=== PATIENT | female | born 1985 ===

== ENCOUNTER 2017-11-19 08:23 | Inpatient (IN) | payer OTHER ==
[2017-11-19 08:44] VITALS: BMI 40.5
[2017-11-19] MEDS ORDERED: Lactated Ringer's 1,000 ML IV SCH (08:45)
--- NOTE | 2017-11-19 08:56 | OBHP ---
Datetime: 11/19/2017 08:48 IP Adm Impression: Term, intrauterine IP Admit Plan: Admit to unit; Initiate labor induction protocol Admit Comment, IP Provider: 32 y/o @ 39.2 wks GA c/o mucous type watery dicharge, no pain, dnei s ctx, +FM, denies vb OB: P0 REHAB DIRECTOR OCCUPATIONAL THERAPIST: Denies hx of abnormal pap, fibroids, ovarn cyst PMH: Hypothryoid PSH: dneies FH:X non contriubtory MEDS: Syntrhoid 112mcg, vitamin NKDA SHX: negative etoh/tobacc/durgs A/P @ 39.2 wks GA IOL for oligohdyramnios admit to L+D npo, ivf admission labs cytotec pain maamget prn Pelvic Type - PN: Adequate Extremities - PN: Normal Abdomen - PN: Normal Back - PN: Normal Breast - PN: Normal Lungs - PN: Normal Heart - PN: Normal Thyroid - PN: Normal Neurologic - PN: Normal HEENT - PN: Normal General - PN: Normal Presentation-Admit: Vertex FHR - Baseline A Provider: 145 Membranes, Provider: Intact Contraction Comments Provider: irregular Comments, ACOG Physical Exam: ultrasound DANICA 4.7cm, vtx Gestation - Est Wks by US: 39.2 IP Hx Assessment: The History has been Reviewed and is Current EGA AdmitDate IP: 39.2 Vital Signs Provider: Reviewed IP Chief Complaint: Suspected ruptured membranes NICHD Variability Prov Fetus A: Moderate 6-25bpm NICHD Decel Fetus A IP Provider: None Dilatation, Provider: 2 Effacement, Provider: 50 Station, Provider: -3 Genitourinary Exam: Normal DTRs - PN: Normal
--- NOTE | 2017-11-19 09:02 | OBADHP ---
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 hx of abnormal pap, fibroids, ovarn cyst PMH: Hypothryoid PSH: dneies FH:X non contriubtory MEDS: Syntrhoid 112mcg, vitamin NKDA SHX: negative etoh/tobacc/durgs A/P @ 39.2 wks GA IOL for oligohdyramnios admit to L+D npo, ivf admission labs cytotec pain maamget prn Pelvic Type - PN: Adequate Extremities - PN: Normal Abdomen - PN: Normal Back - PN: Normal Breast - PN: Normal Lungs - PN: Normal Heart - PN: Normal Thyroid - PN: Normal Neurologic - PN: Normal HEENT - PN: Normal General - PN: Normal Presentation-Admit: Vertex FHR - Baseline A Provider: 145 Membranes, Provider: Intact Contraction Comments Provider: irregular Comments, ACOG Physical Exam: ultrasound DANICA 4.7cm, vtx Gestation - Est Wks by US: 39.2 IP Hx Assessment: The History has been Reviewed and is Current Vital Signs Provider: Reviewed IP Chief Complaint: Suspected ruptured membranes NICHD Variability Prov Fetus A: Moderate 6-25bpm NICHD Decel Fetus A IP Provider: None Dilatation, Provider: 2 Effacement, Provider: 50 Station, Provider: -3 Genitourinary Exam: Normal DTRs - PN: Normal EGA AdmitDate IP: 39.2 IP Adm Impression: Term, intrauterine IP Admit Plan: Admit to unit; Initiate labor induction protocol
[2017-11-19 09:38] LABS: BASO % 0.2 % (0.0-2.0); EOS # 0.1 K/uL (0.0-0.7); EOS % 1.7 % (0.0-4.0); HEMOGLOBIN 11.4 g/dL (11.0-16.0); LYMPH # 1.8 K/uL (1.0-4.3); LYMPH % 20.6 % (20.0-40.0); MEAN CELL VOLUME 76.2 fL (81.0-99.0); MEAN CORPUSCULAR HGB CONC 32.8 g/dL (33.0-37.0); MEAN PLATELET VOLUME 10.2 fL (7.2-11.7); MONO # 0.7 K/uL (0.0-0.8); MONO % 7.8 % (0.0-10.0); NEUT % 69.7 % (50.0-75.0); NRBC % 0.1 % (0.0-2.0); RBC 4.55 Mil/uL (3.80-5.20); RED CELL DISTRIBUTION WIDTH 19.4 % (11.5-14.5); WHITE BLOOD COUNT 8.6 K/uL (4.8-10.8)
[2017-11-19 09:39] LABS: SQUAMOUS EPITHIAL 12 /hpf (0-5); URINE BACTERIA RARE (<OCC); URINE BILIRUBIN NEGATIVE (NEGATIVE); URINE BLOOD NEGATIVE (NEGATIVE); URINE CLARITY Hazy (Clear); URINE COLOR Yellow (YELLOW); URINE GLUCOSE (UA) 2+ mg/dL (Normal); URINE LEUKOCYTE ESTERASE 1+ Leu/uL (Negative); URINE PROTEIN 1+ mg/dL (NEGATIVE); URINE UROBILINOGEN NORMAL mg/dL (0.2-1.0)
[2017-11-19 09:57] LABS: ALBUMIN 3.2 g/dL (3.5-5.0); ALT/SGPT 23 U/L (9-52); AST/SGOT 23 U/L (14-36); BLOOD UREA NITROGEN 17 mg/dL (7-17); CALCIUM 8.9 mg/dl (8.6-10.4); GFR AFRICAN-AMERICAN > 60; GFR NON-AFRICAN AMERICAN > 60
[2017-11-19] MEDS ORDERED: Oxytocin 30 UNIT 30 UNITS/500 ML BAG IV SCH (13:00)
--- NOTE | 2017-11-19 13:02 | OBPN ---
Datetime: 11/19/2017 12:57 IP Progress Impression: Normal progression of labor IP Progress Plan: Continue present management Membranes, Provider: Intact Contraction Comments Provider: q 5 min FHR - Baseline A Provider: 125 Gestation - Est Wks by US: 39.2 Presentation-Admit: Vertex IP Progress Note Comment: pt seen and examined reports some cramping [place] snot want pian lisaciiaoany, d enie svb, +FM VSS VE 2-3 EFM: Cat I TOOC: q 5 mn irreula a/p @ 39.2 wks IOL for oligohydamnis -s/p cytotoic -pitoicn as per protoocl -anstheis prn Vital Signs Provider: Reviewed; Within Normal Limits FHR Category Provider Fetus A: Category I NICHD Variability Prov Fetus A: Moderate 6-25bpm Dilatation, Provider: 2-3 Effacement, Provider: 50 Station, Provider: -3 NICHD Decel Fetus A IP Provider: None
--- NOTE | 2017-11-19 16:54 | OBPN ---
Datetime: 11/19/2017 16:50 IP Procedures: Artificial ROM IP Progress Plan: Continue present management Membranes, Provider: Ruptured Amniotic Fluid Color, Provider: Clear FHR - Baseline A Provider: 125 Gestation - Est Wks by US: 39.2 Presentation-Admit: Vertex IP Progress Note Comment: pt seen and examined and reports pain requestng medicaion. pt checked for prgressin of labor VSS EFM: Cat I TOCO: q 2-5 min VE: 3/50/-3 AROM, clear, scant pitocin 10mu/min A/P @ 39.2 wks GA IOL for oligohydamnios -piotcn sa per protocol -cont toco adn efm -pain medication IV Nubain, benadryl Vital Signs Provider: Reviewed; Within Normal Limits FHR Category Provider Fetus A: Category I NICHD Variability Prov Fetus A: Moderate 6-25bpm Dilatation, Provider: 3 Effacement, Provider: 50 Station, Provider: -3
[2017-11-19] MEDS ORDERED: Nalbuphine 20 mg/ml Inj (1 ml) IVP PRN (17:00)
[2017-11-19] MEDS ORDERED: Nalbuphine 20 mg/ml Inj (1 ml) ONE (17:01)
[2017-11-19] MEDS ORDERED: DiphenhydrAMINE 50 mg/ml Inj ONE (17:02)
[2017-11-19] MEDS ORDERED: DiphenhydrAMINE 50 mg/ml Inj IVP ONE (17:15)
[2017-11-19] MEDS ORDERED: Bupivacaine HCl/FentaNYL Cit 100 ML EPI ONE (17:53)
[2017-11-19] MEDS ORDERED: Sodium Citrate/Citric Acid 15 ml Sol PO STA (20:29)
--- NOTE | 2017-11-19 20:34 | OBPN ---
Datetime: 11/19/2017 20:29 IP Progress Impression: Arrest of dilatation/descent IP Progress Plan: Deliver- Section Membranes, Provider: Ruptured Contraction Comments Provider: q 2 FHR - Baseline A Provider: 125 Gestation - Est Wks by US: 39.2 Presentation-Admit: Vertex IP Progress Note Comment: pt seen and examined for progression of labor pt advsied on continuation with iol vs cxs VSS VE 2-3 unchange EFM: Cat I TOCO: q 2 min a/p @ 39+ wks failure ot proress r/b/a/i pltcs dw paietn antios or/anestheis aware abodmian prep linares to gravity Vital Signs Provider: Reviewed; Within Normal Limits FHR Category Provider Fetus A: Category I NICHD Variability Prov Fetus A: Moderate 6-25bpm Dilatation, Provider: 2-3 Effacement, Provider: 50 Station, Provider: -3 NICHD Decel Fetus A IP Provider: None
[2017-11-19] MEDS ORDERED: Oxytocin 20 units in LR 2,000 ML IV ONE (20:42)
[2017-11-19] MEDS ORDERED: Sodium Citrate/Citric Acid 15 ml Sol ONE (20:42)
[2017-11-19] MEDS ORDERED: cefOXitin IV 2 gm in Saline 2 GM/50 ML BAG IVPB ONE (20:42)
[2017-11-19] MEDS ORDERED: Lidocaine 2% MPF (5 ml) Inj ONE (20:43)
[2017-11-19] MEDS: cefOXitin 2 GM in Sodium Chloride 0.9% 100 ML IV SCH (21:20)
[2017-11-19] MEDS ORDERED: Midazolam 2 MG/2 ML VIAL ONE (21:58)
[2017-11-19] MEDS ORDERED: Oxycodone/Acetaminophen 5/325 mg Tab PO PRN (22:27)
--- NOTE | 2017-11-19 22:29 | OBDS ---
DELIVERY PERSONNEL Delivery Doctor: Indiana Schwarz MD Anesthesiologist: DR. 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 Babies in Womb: 1 Attempted: No Labor Anesthesia: Epidural LABOR INFORMATION Reason for Induction: Oligohydramnios Onset of Labor: 11/19/2017 13:00 Cervical Ripening Agents: Cytotec @ (Annotations: 25 mcg po ) Oxytocin: Induction Group B Beta Strep: Negative Steroids Given: None Reason Steroids Not Administered: Not Applicable MEMBRANES Membranes Rupture Method: Artificial Rupture of Membranes: 11/19/2017 16:50 (Annotations: Data stored by [facility] on behalf of user) Length of Rupture (hrs): 4.92 Amniotic Fluid Color: Clear Amniotic Fluid Amount: Scant Amniotic Fluid Odor: Normal STAGES OF LABOR Stage 3 hrs: 0 Stage 3 min: 1 Total Time in Labor hrs: 8 Total Time in Labor min: 46 BABY A INFORMATION Infant Delivery Date/Time: 11/19/2017 21:45 Method of Delivery: Born in Route : No : N/A Forceps: N/A Vacuum Extraction: N/A Shoulder Dystocia : No SHOULDER DYSTOCIA BABY A Delivery Date/Time: 11/19/2017 21:45 PRESENTATION/POSITION BABY A Presentation: Cephalic Cephalic Presentation: Vertex Vertex Position: Left Occipital Posterior Breech Presentation: N/A PLACENTA INFORMATION BABY A Placenta Delivery Time : 11/19/2017 21:46 Placenta Method of Delivery: Manual Removal Placenta Status: Delivered SCORES BABY A Heart Rate 1 min: Slow, Below 100 bpm Resp Effort 1 min: Slow, Irregular Reflex Irritability 1 min: [place] Muscle Tone 1 min: Some Flexion of Extremities Color 1 min: Body [place], Extremities Blue Resuscitation Effort 1 min: Tactile Stimulation; Oxygen SCORE 1 MIN: 5 Heart Rate 5 min: >100 bpm Resp Effort 5 min: Good Cry Reflex Irritability 5 min: Cough or Sneeze or Pulls Away Muscle Tone 5 min: Active Motion Color 5 min: Body [place], Extremities Blue Resuscitation Effort 5 min: Tactile Stimulation SCORE 5 MIN: 9 INFORMATION BABY A Gestational Age at Delivery: 39.2 Gestational Status: Term Infant Outcome : Liveborn Infant Condition : Stable Infant Sex: Female IDENTIFICATION/MEDS BABY A ID Band Number: [id number] Sensor Number: [id number] WEIGHT/LENGTH BABY A Infant Birthweight (gms): 4425 Infant Weight (lb): 9 Weight (oz): 12 Length Inches: 20.50 Length cms: 52.1 CORD INFORMATION BABY A No. Cord Vessels: 3 Nuchal Cord : Around Neck x1, Loose Cord Blood Taken: Yes Suction: Mouth; Nose
--- NOTE | 2017-11-19 22:31 | PCM.SURG1 ---
Surgeon's Initial Post Op Note - Surgeon's Notes Surgeon: Iris Schwarz MD Nutritional Services Director: Jag Merrill MD Type of Anesthesia: Other Anesthesia Administered By: Dr King Pre-Operative Diagnosis: Failure to progress Operative Findings: live female , apgars 5, 9 weight of 9lbs 12 ounces. normal appearing uterus, tubes and ovaries bilaterally. track sweeper prsetn for delivery. Dr Jag Merrill was surgical services assistant and essential in gainign entry , retraction, epxoure, holding bladder blade and closing all layers and was presetn for entire case. Post-Operative Diagnosis: same as above, macrosomia Operation Performed: Primary low transverse section Specimen/Specimens Removed: placenta Estimated Blood Loss: EBL {In ML}: 800 Blood Products Given: N/A Drains Used: No Drains Post-Op Condition: Good Date of Surgery/Procedure: 11/19/17 Time of Surgery/Procedure: 22:00
[2017-11-19] MEDS ORDERED: HYDROmorphone 0.5 mg/0.5 ml ISec IVP PRN (22:47)
[2017-11-20] MEDS: cefOXitin 2 GM in Sodium Chloride 0.9% 100 ML IV SCH ×2 (05:50→13:21)
--- NOTE | 2017-11-20 06:02 | OP ---
PROCEDURE DATE: 11/19/2017 PREOPERATIVE DIAGNOSIS: Failure to progress. POSTOPERATIVE DIAGNOSES: Failure to progress, macrosomia. OPERATIVE FINDINGS: Live female . Apgars 5 and 9, weight of 9 pounds 12 ounces, normal-appearing uterus, tubes, and ovaries bilaterally. Assistant Oceanographer present for delivery. Dr Alivia Carr was neurosurgical nurse practitioner who was present for the entire case and assisted in gaining entry, retraction, exposure, holding the bladder blade, helping to closing all layers, and present for the entire case. SURGEON: Iris Schwarz MD MIDDLE SCHOOL TUTOR: Jag Carr MD TYPE OF ANESTHESIA: Epidural. ANESTHESIA ADMINISTERED BY: . OPERATION PERFORMED: Primary low transverse section. SPECIMENS REMOVED: Placenta. ESTIMATED BLOOD LOSS: 800 mL. BLOOD PRODUCTS: None. COMPLICATIONS: None. DESCRIPTION OF PROCEDURE: The patient was taken to the operating room where she had epidural anesthesia. Once it was found to be adequate, the patient was positioned on the operating room table in dorsal supine position. The patient was then prepped and draped in the usual sterile fashion. A time-out confirmed correct patient and correct procedure. , a Pfannenstiel skin incision was made with a scalpel and carried down to the to the underlying fascia with Bovie. The fascia was incised in the midline, and the incision was extended laterally with Bovie. The inferior aspect of the fascial incision was grasped with Allis and Sonu clamps, and the underlying rectus muscles were dissected off bluntly. Attention was then turned to the superior aspect with the similar fashion. It was grasped with Allis and Sonu clamps, and the underlying rectus muscles were dissected bluntly. The rectus muscle was then bluntly in the midline. The peritoneum was identified and entered into clear space. The incision was extended laterally and superiorly until there was good visualization of the bladder. The lower end of the [place] was then inserted. The lower uterine segment was incised in a transverse fashion. The bladder flap was created digitally. The Lower end of the [place] was then re-inserted. Lower uterine segment was incised with the scalpel. The uterine incision was extended laterally bluntly. The surgeon's hand entered the uterine cavity. The 's head was delivered atraumatically. There was nuchal cord x1 that was reduced, followed by delivery of the shoulders, followed by delivery of the body. Both oral and nasal passages of the baby were bulb suctioned. The umbilical cord was clamped and cut. Baby was handed off to the awaiting supervisor cigarette making department. Cord blood and cord gases were collected and sent x2. The placenta was then delivered manually. The uterus was exteriorized and cleared of all clots and debris. The uterine incision was repaired with 0-Vicryl in a running continuous locked fashion. A second layer of the same suture was used to close the uterus in a running imbricated manner. There was good hemostasis at the uterine incision site. There were normal tubes and ovaries. The uterus was returned to the abdomen. The paracolic gutters were cleared of all clots and debris. The peritoneum was reapproximated and closed with 2-0 chromic in running continuous fashion. The rectus was reapproximated with 2-0 chromic in an interrupted manner. The fascia was reapproximated and closed with 0 Vicryl in a running continuous fashion, subcutaneous layers with 2-0 plain, and then skin was reapproximated with 4-0 Monocryl in a running subcuticular fashion. At the end of the procedure, all needles, sponge, and instrument counts were noted to be correct x2. The patient tolerated the procedure well and was transferred to the recovery room in stable condition. Iris Schwarz MD
[2017-11-20 08:30] LABS: BASO % 0.2 % (0.0-2.0); EOS % 0.2 % (0.0-4.0); HEMOGLOBIN 10.9 g/dL (11.0-16.0); LYMPH # 1.2 K/uL (1.0-4.3); LYMPH % 10.1 % (20.0-40.0); MEAN CELL VOLUME 75.4 fL (81.0-99.0); MEAN CORPUSCULAR HEMOGLOBIN 24.2 pg (27.0-31.0); MEAN CORPUSCULAR HGB CONC 32.1 g/dL (33.0-37.0); MEAN PLATELET VOLUME 9.9 fL (7.2-11.7); MONO # 0.7 K/uL (0.0-0.8); MONO % 5.9 % (0.0-10.0); NEUT # 10.2 K/uL (1.8-7.0); NEUT % 83.6 % (50.0-75.0); NRBC % 0.1 % (0.0-2.0); RBC 4.52 Mil/uL (3.80-5.20); RED CELL DISTRIBUTION WIDTH 19.1 % (11.5-14.5); WHITE BLOOD COUNT 12.2 K/uL (4.8-10.8)
[2017-11-20 08:38] LABS: ALBUMIN 2.6 g/dL (3.5-5.0); ALT/SGPT 26 U/L (9-52); AST/SGOT 27 U/L (14-36); BLOOD UREA NITROGEN 12 mg/dL (7-17); CALCIUM 8.6 mg/dl (8.6-10.4); GFR AFRICAN-AMERICAN > 60; GFR NON-AFRICAN AMERICAN > 60
[2017-11-20] MEDS: Oxycodone/Acetaminophen 5/325 mg Tab PO PRN ×3 (09:28→22:02)
[2017-11-20] MEDS: Simethicone 80 mg Chewtab PO SCH ×4 (09:29→22:02)
[2017-11-20] MEDS: Prenatal Multivit/Folic Acid/Iron Tab PO SCH (09:29)
--- NOTE | 2017-11-20 10:09 | OBPPN ---
Datetime: 11/20/2017 10:05 PP Pain Prov: Within normal limits PP Nausea Prov: Denies PP Flatus Prov: Yes PP BM Prov: No PP Breasts Prov: Normal PP Heart Prov: Normal PP Lungs Prov: Normal PP Abdomen/Uterus Prov: Normal PP Lochia Prov: Normal PP Vulva/Perineum Prov: Normal PP CVA Tenderness Prov: Normal PP Extremities Prov: Normal PP C/S Incision Prov: Normal PP Progress Prov: Normal PP Impression Prov: Normal progression PP Plan Prov: Continue present management PP Progress Note Prov: pt seen and examiend and rporet pain over incision. pt dnie sany fever, chill s, nasue, vomiting, cp, sob. +linares pt states called hposital adn baby is doing well, transferred last night. VSS PE see above a/P s/p PLTCS POD #1 dc linares pain manamgnet out of bed, ambulation with asisstance advance diet am labs enocurage breast feeding incentive spirometer, abodmina binder IP PP Procedures: None Vital Signs Provider PP: Reviewed; Within Normal Limits
[2017-11-20] MEDS ORDERED: Bisacodyl 5mg EC Tab PO ONE (22:27)
--- NOTE | 2017-11-21 04:29 | OBPPN ---
Datetime: 11/21/2017 04:28 PP Pain Prov: Within normal limits PP Nausea Prov: Denies PP Flatus Prov: Yes PP BM Prov: No PP Breasts Prov: Normal PP Heart Prov: Normal PP Lungs Prov: Normal PP Abdomen/Uterus Prov: Normal PP Lochia Prov: Normal PP Vulva/Perineum Prov: Normal PP CVA Tenderness Prov: Normal PP Extremities Prov: Normal PP C/S Incision Prov: Normal PP Progress Prov: Normal PP Comments Phys Exam Prov: incision c/d/ih ealing well no uterine tendnerss PP Impression Prov: Normal progression PP Plan Prov: Continue present management PP Progress Note Prov: pt seen and examiend and rporet pain contorlled iwht mds. pt dnie sany fever, chills, nasue, vomiting, cp, sob.pt mabuaitn adn voiidng, passing flatus, tolerating diet VSS PE see above a/P s/p PLTCS POD #2 pain manamgnet ambulation with asisstance regular dite enocurage breast feeding incentive spirometer, abodmina binder Vital Signs Provider PP: Reviewed; Within Normal Limits
[2017-11-21] MEDS: Levothyroxine 112 MCG TAB PO SCH (06:18)
[2017-11-21] MEDS: Oxycodone/Acetaminophen 5/325 mg Tab PO PRN (06:23)
[2017-11-21] MEDS: Simethicone 80 mg Chewtab PO SCH ×4 (09:57→22:35)
[2017-11-21] MEDS: Prenatal Multivit/Folic Acid/Iron Tab PO SCH (09:57)
[2017-11-22] MEDS: Levothyroxine 112 MCG TAB PO SCH (07:21)
[2017-11-22 08:16] VITALS: BP 137/68; PULSE 77; RESP 18; TEMP 97.4; O2SAT 100
[2017-11-22] MEDS: Simethicone 80 mg Chewtab PO SCH (10:13)
[2017-11-22] MEDS: Prenatal Multivit/Folic Acid/Iron Tab PO SCH (10:13)
--- NOTE | 2017-11-22 16:18 | OBDCSUM ---
Datetime: 11/22/2017 09:08 Discharged to, Provider: Home Follow up at, Provider: dr mckeon Disch Instr Activity: Normal activity; May Shower Disch Instr Diet: Regular Discharge Diet restrict Prov: none Discharge Instructions, Provider: Routine instructions given Discharge Diagnosis, Provider: Term Delivered Discharge Time: 11/22/2017 13:45 Follow up in weeks, Provider: one week Disch Referrals: None Contraception discussed, Prov: Yes Disch Activity Restrictions: No exercising; No lifting; No sexual activity; Nothing in vagina - Inte rcourse, tampons, douche Contraception after Delivery: Not Planning to Use
--- NOTE | 2017-11-22 16:18 | OBPPN ---
Datetime: 11/22/2017 16:17 PP Pain Prov: Within normal limits PP Nausea Prov: Denies PP Flatus Prov: Yes PP Breasts Prov: Normal PP Heart Prov: Normal PP Lungs Prov: Normal PP Abdomen/Uterus Prov: Normal PP Lochia Prov: Normal PP Vulva/Perineum Prov: Normal PP CVA Tenderness Prov: Normal PP Extremities Prov: Normal PP C/S Incision Prov: Normal PP Progress Prov: Normal PP Impression Prov: Normal progression PP Plan Prov: Discharge PP Progress Note Prov: pt seen and examiend and rporet pain contorlled iwht mds. pt dnie sany fever, chills, nasue, vomiting, cp, sob.pt mabuaitn adn voiidng, passing flatus, tolerating diet VSS PE see above a/P s/p PLTCS POD #3 dc home rto 1 week precauitn givne Vital Signs Provider PP: Reviewed; Within Normal Limits
== END 2017-11-22 14:34 | disposition home or self-care (01) | DRG 371 ==
LOC: C.EROB 08:23 → C.4D 08:43 → C.4M 11-20 01:30
PROVIDERS: ADMIT Obstetrics & Gynecology; ATTEND Obstetrics & Gynecology
PROC: 10D00Z1 Extraction of Products of Conception, Low, Open Approach (ICD-10-PCS; principal; 2017-11-19)
DX: O41.03X0 Oligohydramnios, third trimester, not applicable or unspecified (principal); O69.81X0 Labor and delivery complicated by cord around neck, without compression, not applicable or unspecified; Z3A.39 39 weeks gestation of pregnancy; Z37.0 Single live birth; O66.9 Obstructed labor, unspecified

== ENCOUNTER 2017-11-24 00:07 | Emergency (ER) | payer OTHER ==
[2017-11-24 00:08] VITALS: BMI 40.5
[2017-11-24 00:24] VITALS: RESP 20; TEMP 98.8
--- NOTE | 2017-11-24 00:48 | C.PDOC ---
History Of Present Illness 32 year old female presents to the ED complaining of swelling at the right axilla, noticed this evening. Of note, patient delivered her baby 4 days ago and she believes her milk came in yesterday. Patient reports her breasts feel heavy, and she is unable to breastfeed as baby is still in the hospital. Her pump arrives tomorrow. She otherwise denies any fever, chills, sob, chest pain, or increased redness or warmth at the site. Time Seen by Provider: 11/24/17 00:22 Chief Complaint (Nursing): Abnormal Skin Integrity History Per: Patient History/Exam Limitations: no limitations Onset/Duration Of Symptoms: Hrs Current Symptoms Are (Timing): Still Present Past Medical History Reviewed: Historical Data, Nursing Documentation, Vital Signs Vital Signs: Last Vital Signs Temp 98.8 F 11/24/17 00:18 Pulse 88 11/24/17 01:13 Resp 20 11/24/17 01:13 BP 126/72 11/24/17 01:13 Pulse Ox 100 11/24/17 02:43 - Medical History PMH: Hypothyroidism Denies: Depression, Diabetes, HTN Surgical History: Family History: States: No Known Family Hx - Social History Hx Alcohol Use: No Hx Substance Use: No - Immunization History Hx Tetanus Toxoid Vaccination: No Hx Influenza Vaccination: No Hx Pneumococcal Vaccination: No Review Of Systems Constitutional: Negative for: Fever, Chills Skin: Positive for: Other (swelling to right axilla). Negative for: Rash Physical Exam - Physical Exam Appears: Well, Non-toxic, No Acute Distress Skin: Warm, Dry Head: Atraumatic, Normacephalic Eye(s): bilateral: Normal Inspection, EOMI Nose: Normal Oral Mucosa: Moist Neck: Normal ROM, Supple Lymphatic: Other (3x3 cm area of swelling at right axilla with no induration, tenderness, warmth, or erythema) Chest: Symmetrical, Other (Tenderness and some induration noted at 6 o'clock position on left breast; no warmth, fluctuance, erythema, or nipple discharge) Cardiovascular: Rhythm Regular Respiratory: Normal Breath Sounds, No Accessory Muscle Use, Other (speaking in full sentences) Extremity: Normal ROM, No Deformity Neurological/Psych: Oriented x3, Normal Speech, Other (No focal deficits) ED Course And Treatment O2 Sat by Pulse Oximetry: 100 Progress Note: Discussed with patient that her breasts appear engorged, swelling likely from the milk production. Instructed patient to massage and apply warm compresses at home. Manual pump provided in the ED. Patient is stable for discharge home. Advised patient to fill prescription for antibiotics only if the area becomes red, increasingly swollen, or she develops fever. Disposition Counseled Patient/Family Regarding: Diagnosis, Need For Followup, Rx Given - Disposition Disposition: HOME/ ROUTINE Disposition Time: 00:45 Condition: STABLE Additional Instructions: Apply warm compresses. Massage the area. Empty the breast with feeding/pumping. Take motrin for pain. If the area becomes red , increasing swollen, or you get a fever, fill the antibiotic. Follow up with your OBGYN in 1-2 days. Prescriptions: Cephalexin [cephalexin] 500 mg PO QID 7 Days cap Instructions: [facility] Forms: [facility] ([place]) - POA Present On Arrival: None - Clinical Impression Clinical Impression: Milk engorgement of breast - PA / GUARD IMMIGRATION / Resident Statement MD/DO has reviewed & agrees with the documentation as recorded. - Scribe Statement The provider has reviewed the documentation as recorded by the Scribe (Janell Castle) All medical record entries made by the Scribe were at my direction and personally dictated by me. I have reviewed the chart and agree that the record accurately reflects my personal performance of the history, physical exam, medical decision making, and the department course for this patient. I have also personally directed, reviewed, and agree with the discharge instructions and disposition.
[2017-11-24 01:23] VITALS: BP 126/72; PULSE 88
[2017-11-24 02:39] VITALS: O2SAT 100
== END 2017-11-24 01:12 | disposition home or self-care (01) ==
LOC: C.ER 00:07
DX: N64.59 Other signs and symptoms in breast (principal); E03.9 Hypothyroidism, unspecified